=== PATIENT | male | born 2000 | race American Indian/Alaskan Native ===

== ENCOUNTER 2019-07-13 00:55 | Emergency (ER) | payer OTHER ==
[2019-07-13 01:10] VITALS: BP 148/75
--- NOTE | 2019-07-13 01:57 | Emergency Department Report ---
Chief Complaint: Earache Stated Complaint: RT EAR PAIN Time Seen by Provider: 07/13/19 01:42 - HPI History of Present Illness: 18 yo M with right ear pain x 4 days. Denies fever, recent URI symptoms. Denies sore throat or dental pain. - ROS Review of Systems: ROS: Comment: All other systems reviewed and negative Constitutional: negative for fever ENT: positive for ear pain; negative for nasal congestion or sore throat Resp: negative for cough - Exam Vital Signs: Vital Signs 07/13/19 01:01 Temperature 98.5 F Pulse Rate 69 Respiratory 18 Rate Blood Pressure 148/75 O2 Sat by Pulse 99 Oximetry Physical Exam: General Limitations: No Limitations General appearance: alert, in no apparent distress - Head Head exam: Present: atraumatic, normocephalic - Eye Eye exam: Present: normal appearance - ENT ENT exam: Present: mucous membranes moist; bilateral TM's clear, no erythema or swelling present; small amount of white discharge present bilateral ear canals - Neck Neck exam: Present: normal inspection - Respiratory Respiratory exam: Present: normal lung sounds bilaterally. Absent: respiratory distress - Cardiovascular Cardiovascular Exam: Present: normal rhythm, normal rate - Extremities Exam Extremities exam: normal inspection, normal range of motion - Neurological Exam Neurological exam: Present: alert, oriented X3. - Psychiatric Psychiatric exam: Present: normal affect, normal mood - Skin Skin exam: warm, dry, intact MSE screening note: Focused history and physical exam performed. Due to findings the following was ordered: n/a 18 yo M with right ear pain. Vital are normal, pt is afebrile. No evidence of otitis media on exam. Pt does not have an emergent condition at this time. Outpt f/u advised. Return precautions given. ED Disposition for MSE Clinical Impression: Otalgia, right ear Disposition: Z-07 MED SCREENING EXAM-LEFT Is pt being admited?: No Condition: Stable Instructions: Earache (ED) Referrals: PRIMARY CAREMD [Referring] - 3-5 Days [facility] [Provider Group] - 3-5 Days RIO MCGILL MD [Staff Physician] - 3-5 Days Time of Disposition: 01:52
== END 2019-07-13 02:21 | disposition left against medical advice (07) ==
LOC: ED 00:55
DX: H92.01 Otalgia, right ear (principal)
CPT/HCPCS: 99282